=== PATIENT | female | born 1950 | race Caucasian/White ===

== ENCOUNTER 2017-10-24 15:36 | Inpatient (IN) | payer OTHER, MEDICARE ==
[~2017-10-24] VITALS: Ht 160 cm; Wt 60.3 kg
[2017-10-24 15:45] VITALS: BP 120/70
--- NOTE | 2017-10-24 15:50 | NUR ---
PT AMBULATED TO BED 7
--- NOTE | 2017-10-24 16:05 | NUR ---
PT COMES TO ED C/O RECTAL PAIN AND BRIOGHT RED BLOOD IN STOOL AND ON TISSUE WHEN WIPING. PT HAS GOOD SKIN COLOR, VSS, DENIES DIZZINESS N/V OR SOB. ABD SOFT AND NONTENDER. NAD NOTED/STATED OTHERWISE
[2017-10-24] MEDS ORDERED: fentaNYL 0.05 MG/ML VIAL IVP ONE (16:35)
[2017-10-24] MEDS ORDERED: NACL 0.9% 1,000 ML IV SCH ×2 (16:35→19:16)
[2017-10-24 17:36] LABS: BASOPHILS % (AUTO) 0.1 % (0.0-2.0); EOSINOPHILS # (AUTO) 0.1 K/uL (0-0.4); EOSINOPHILS % (AUTO) 0.9 % (0.0-4.0); LYMPHOCYTES # (AUTO) 1.3 K/uL (2.5-16.5); LYMPHOCYTES % (AUTO) 20.4 % (20.5-51.1); MEAN CORPUSCULAR HEMOGLOBIN 28 pg (27-31); MEAN CORPUSCULAR HGB CONC 32 g/dL (33-37); MEAN CORPUSCULAR VOLUME 87.4 fL (80-94); MONOCYTES # (AUTO) 0.4 K/uL (0.8-1.0); MONOCYTES % (AUTO) 5.5 % (1.7-9.3); NEUTROPHILS # (AUTO) 4.7 K/uL (1.8-7.7); NEUTROPHILS % (AUTO) 73.1 % (42.2-75.2); PLATELET COUNT (AUTO) 176 K/uL (140-450); RED BLOOD CELL COUNT(AUTO) 2.86 MIL/uL (4.20-5.40); RED CELL DISTRIBUTION WIDTH 16.1 % (11.6-13.7); WHITE BLOOD COUNT (AUTO) 6.5 K/uL (4.8-10.8)
[2017-10-24 17:51] LABS: ANION GAP 8.3 (8-16); CARBON DIOXIDE 31.2 mmol/L (21-32); CREATININE 0.6 mg/dL (0.6-1.3); POTASSIUM 3.5 mmol/L (3.5-5.1)
[2017-10-24 17:55] LABS: PROTHROMBIN TIME 11.7 secs (10.8-13.4)
[2017-10-24 17:57] LABS: ALBUMIN 2.7 g/dL (3.4-5.0); TOTAL BILIRUBIN 0.2 mg/dL (0.0-1.0)
--- NOTE | 2017-10-24 18:00 | NUR ---
Patient appears to be resting comfortably in bed, arousable to voice. pt states her pain is decreased to 2/10. Vital Signs within normal limits. Respirations even and unlabored.
--- NOTE | 2017-10-24 18:31 | NUR ---
Pt assisted to bedside commode with minimal assist for urine sample.
--- NOTE | 2017-10-24 18:45 | NUR ---
urine sample given to phlebotomy
[2017-10-24 19:06] LABS: BILIRUBIN,URINE NEGATIVE (NEGATIVE); BLOOD, URINE TRACE-I (NEGATIVE); COLOR,URINE YELLOW (YELLOW); LEUKOCYTE ESTERASE ,URINE TRACE (NEGATIVE); NITRITE, URINE NEGATIVE (NEGATIVE); PH,URINE 5.5 (5.0-9.0); UGLUCOSE NEGATIVE (NEGATIVE)
[2017-10-24 19:18] LABS: APPEARANCE,URINE HAZY (CLEAR)
[2017-10-24] MEDS ORDERED: ONDANSETRON 4 MG/2 ML VIAL IM/IVP PRN (19:20)
[2017-10-24] MEDS ORDERED: ACETAMINOPHEN 325 MG TAB PO PRN (19:20)
[2017-10-24] MEDS ORDERED: HYDROcodone/APAP 7.5/325 MG 1 TAB PO PRN (19:20)
[2017-10-24] MEDS ORDERED: DOCUSATE SODIUM 100 MG GELCAP PO PRN (19:20)
[2017-10-24 19:22] LABS: RBC,URINE 0-5 (RARE) /HPF (0-5); WBC,URINE 0-5 (RARE) /HPF (0-5)
--- NOTE | 2017-10-24 19:27 | NUR ---
pmd at bedside
--- NOTE | 2017-10-24 19:35 | NUR ---
DR ARORA AT BEDSIDE TO AARONAL
[2017-10-24 19:48] LABS: CHOL/HDL RATIO 4.7 (1-4.5); FREE T4 (FREE THYROXINE) 0.82 ng/dL (0.76-1.46); MAGNESIUM 1.6 mg/dL (1.8-2.4); THYROID STIMULATING HORMONE 5.64 uIU/mL (0.34-3.74)
--- NOTE | 2017-10-24 20:00 | NUR ---
PT ARRIVED FROM ED, AMBULATED TO BED, TOLERATED WELL, REPORT RECEIVED FROM MINDY RN, PT STABLE, NO DISTRESS NOTED, IV TO L FA 22G SL, PATENT INTACT, PT ON ROOM AIR NO SOB, ORIENT PT TO ROOM, BED, CALL LIGHT AND PHONE, MRSA SWAB TAKEN, INITIAL ASSESSMENT DONE, ALL SAFETY PRECAUTION MET, WILL CONTINUE TO MONITOR.
--- NOTE | 2017-10-24 20:00 | NUR ---
Pt transferred to Tele via .
--- NOTE | 2017-10-24 20:06 | NUR ---
Note eleazar in EDM - 10/24/17 at 2007 by TRISTAN Patient will be admitted to care of DR FRANCISCO. Admited to TELE. Will go to room 111A. Belongings list completed. Report to MARCO MIX.
--- NOTE | 2017-10-24 20:07 | NUR ---
Patient will be admitted to care of DR FRANCISCO. Admited to TELE. Will go to room 111A. Belongings list completed. Report to MARCO SHARP.
[2017-10-24] MEDS ORDERED: PRED5TAB7 PO (20:22)
[2017-10-24] MEDS ORDERED: SPIMDI INH (20:25)
[2017-10-24] MEDS ORDERED: DICL1GEL19 TP (20:25)
[2017-10-24] MEDS ORDERED: AMLO10TA PO (20:25)
[2017-10-24] MEDS ORDERED: CARV6.25 PO (20:25)
[2017-10-24] MEDS ORDERED: RIVA15TA1 PO (20:27)
[2017-10-24 20:30] VITALS: BP 145/74
[2017-10-24] MEDS ORDERED: IPRATROPIUM 0.02% 0.5 MG/2.5 ML NEBU INH PRN (20:30)
--- NOTE | 2017-10-24 20:31 | NUR ---
DR. ARORA AT BEDSIDE TALKING TO PT, DR STATED TO HOLD IVF FOR NOW, HE WANTS TO SEE PT CBC FIRST BEFORE RUNNING ANY FLUIDS ON HER.
[2017-10-24] MEDS ORDERED: SODIUM CHLORIDE FLUSH 10 ML SYR IVF SCH (21:00)
[2017-10-24] MEDS: CARVEDILOL 6.25 MG TAB PO SCH (21:10)
[2017-10-24] MEDS ORDERED: ZOLPIDEM 5 MG TAB PO SCH (21:45)
[2017-10-24] MEDS ORDERED: MAGNESIUM OXIDE 400 MG TAB PO SCH (22:00)
--- NOTE | 2017-10-24 22:53 | NUR ---
PT STATED UNABLE TO SLEEP, NOTIFIED DR. ARORA REGARDING PT CONCERNS, STATED UNDERSTANDING AND ORDERED AMBIEN, ADMINISTERED AMBIEN AND DUE MEDICATION, PT TOLERATED WELL, NO DISTRESS NOTED, CALL LIGHT WITHIN REACH, WILL CONTINUE TO MONITOR.
[2017-10-24 23:08] LABS: BASOPHILS % (AUTO) 0.2 % (0.0-2.0); EOSINOPHILS # (AUTO) 0.1 K/uL (0-0.4); HEMATOCRIT 23.3 % (36-48); HEMOGLOBIN 7.7 g/dL (12.0-16.0); LYMPHOCYTES # (AUTO) 1.2 K/uL (2.5-16.5); LYMPHOCYTES % (AUTO) 22.9 % (20.5-51.1); MEAN CORPUSCULAR HEMOGLOBIN 29 pg (27-31); MEAN CORPUSCULAR HGB CONC 33 g/dL (33-37); MEAN CORPUSCULAR VOLUME 86.7 fL (80-94); MONOCYTES # (AUTO) 0.3 K/uL (0.8-1.0); NEUTROPHILS # (AUTO) 3.7 K/uL (1.8-7.7); NEUTROPHILS % (AUTO) 69.9 % (42.2-75.2); PLATELET COUNT (AUTO) 140 K/uL (140-450); RED BLOOD CELL COUNT(AUTO) 2.69 MIL/uL (4.20-5.40); RED CELL DISTRIBUTION WIDTH 15.8 % (11.6-13.7); WHITE BLOOD COUNT (AUTO) 5.3 K/uL (4.8-10.8)
[2017-10-25] VITALS: BP 107/54
--- NOTE | 2017-10-25 00:01 | NUR ---
CHECKED ON PT, PT RESTING ON BED, NO DISTRESS NOTED, CALL LIGHT WITHIN REACH.
[2017-10-25] MEDS: NACL 0.9% 1,000 ML IV SCH ×2 (02:00→21:35)
--- NOTE | 2017-10-25 02:30 | NUR ---
PT SLEEPING, NO DISTRESS NOTED, CALL LIGHT WITHIN REACH, WILL CONTINUE TO MONITOR.
[2017-10-25 04:00] VITALS: BP 136/72
--- NOTE | 2017-10-25 04:22 | NUR ---
CHECKED ON PT, PT SLEEPING, NO DISTRESS NOTED, CALL LIGHT WITHIN REACH, WILL CONTINUE TO MONITOR.
--- NOTE | 2017-10-25 06:25 | NUR ---
MOVED PT TO ROOM 124 B, PT TOLERATED WELL, NO DISTRESS NOTED, CALL LIGHT WITHIN REACH, WILL CONTINUE TO MONITOR
[2017-10-25 06:49] LABS: BASOPHILS % (AUTO) 0.4 % (0.0-2.0); EOSINOPHILS # (AUTO) 0.1 K/uL (0-0.4); EOSINOPHILS % (AUTO) 1.7 % (0.0-4.0); HEMATOCRIT 25.1 % (36-48); HEMOGLOBIN 8.1 g/dL (12.0-16.0); LYMPHOCYTES % (AUTO) 26.7 % (20.5-51.1); MEAN CORPUSCULAR HEMOGLOBIN 28 pg (27-31); MEAN CORPUSCULAR HGB CONC 32 g/dL (33-37); MEAN CORPUSCULAR VOLUME 86.9 fL (80-94); MONOCYTES # (AUTO) 0.3 K/uL (0.8-1.0); MONOCYTES % (AUTO) 7.5 % (1.7-9.3); NEUTROPHILS # (AUTO) 2.4 K/uL (1.8-7.7); NEUTROPHILS % (AUTO) 63.7 % (42.2-75.2); PLATELET COUNT (AUTO) 138 K/uL (140-450); RED BLOOD CELL COUNT(AUTO) 2.89 MIL/uL (4.20-5.40); RED CELL DISTRIBUTION WIDTH 16.2 % (11.6-13.7); WHITE BLOOD COUNT (AUTO) 3.7 K/uL (4.8-10.8)
[2017-10-25] MEDS: MORPHINE SULFATE 4 MG/ML SYR IVP PRN ×3 (07:09→23:03)
[2017-10-25 07:12] LABS: ANION GAP 9.6 (8-16); CARBON DIOXIDE 29.2 mmol/L (21-32); CREATININE 0.5 mg/dL (0.6-1.3); POTASSIUM 3.8 mmol/L (3.5-5.1)
--- NOTE | 2017-10-25 07:21 | NUR ---
ENDORSED PLAN OF CARE TO DAY SHIFT NURSE WILL RN FOR CONTINUOUS OF CARE. CALL LIGHT WITHIN REACH.
--- NOTE | 2017-10-25 07:22 | NUR ---
RECEIVED BEDSIDE REPORT FROM HEAT TREATER HEAD NURSE. PATIENT IS AWAKE, ALERT AND ORIENTEDX4. NO COMPLAINTS AT THIS TIME. NO SIGNS OF DISTRESS ON ROOM AIR. IV ON L WRIST 22G INFUSING NS AT 50ML/HR. IV IS CLEAN, DRY AND INTACT. SKIN IS INTACT. TELE MONITOR IN PLACE. WILL CONTINUE TO MONITOR THE PATIENT
[2017-10-25 08:00] VITALS: BP 134/74
[2017-10-25] MEDS ORDERED: DICLOFENAC SODIUM 100 GM TP SCH (09:00)
[2017-10-25 09:03] LABS: T4 (THYROXINE) 5.9 ug/dL (4.5-12.0)
--- NOTE | 2017-10-25 09:04 | NUR ---
PATIENT HAS BEEN SCREENED AND CATEGORIZED MODERATE NUTRITION RISK. PATIENT WILL BE SEEN WITHIN 3-5 DAYS OF ADMISSION. 10/27/17 10/29/[address]
[2017-10-25] MEDS: CARVEDILOL 6.25 MG TAB PO SCH ×2 (09:36→21:11)
[2017-10-25] MEDS: predniSONE 5 MG TAB PO SCH (09:36)
[2017-10-25] MEDS: amLODIPine 5 MG TAB PO SCH (09:37)
--- NOTE | 2017-10-25 09:38 | NUR ---
ADMINISTERED MEDS. PATIENT TOLERATED WELL. NO COMPLAINTS AT THIS TIME. WILL CONTINUE TO MONITOR THE PATIENT.
--- NOTE | 2017-10-25 10:25 | NUR ---
ADMINISTERED PRN PAIN MED. PATIENT TOLERATING WELL. IV IS CLEAN, DRY AND INTACT. PLACED A WARM BLANKET ON L LEG AND ON BACK TO HELP W PAIN. WILL CONTINUE TO MONITOR THE PATIENT.
[2017-10-25 12:00] VITALS: BP 137/76
--- NOTE | 2017-10-25 12:00 | NUR ---
FAMILY AT BEDSIDE. PATIENT IS AWAKE, ALERT AND ORIENTEDX4. NO SIGNS OF RESP DISTRESS ON ROOM AIR. NO COMPLAINTS WILL CONTINUE TO MONITOR THE PATIENT.
[2017-10-25 13:57] LABS: BASOPHILS % (AUTO) 0.2 % (0.0-2.0); EOSINOPHILS # (AUTO) 0.1 K/uL (0-0.4); HEMATOCRIT 23.3 % (36-48); HEMOGLOBIN 7.6 g/dL (12.0-16.0); LYMPHOCYTES # (AUTO) 0.8 K/uL (2.5-16.5); LYMPHOCYTES % (AUTO) 14.8 % (20.5-51.1); MEAN CORPUSCULAR HEMOGLOBIN 28 pg (27-31); MEAN CORPUSCULAR HGB CONC 33 g/dL (33-37); MEAN CORPUSCULAR VOLUME 86.5 fL (80-94); MONOCYTES # (AUTO) 0.3 K/uL (0.8-1.0); MONOCYTES % (AUTO) 5.6 % (1.7-9.3); NEUTROPHILS # (AUTO) 4.2 K/uL (1.8-7.7); NEUTROPHILS % (AUTO) 78.4 % (42.2-75.2); PLATELET COUNT (AUTO) 137 K/uL (140-450); RED BLOOD CELL COUNT(AUTO) 2.69 MIL/uL (4.20-5.40); WHITE BLOOD COUNT (AUTO) 5.3 K/uL (4.8-10.8)
--- NOTE | 2017-10-25 14:45 | NUR ---
ASSESSED ORTHOSTATIC HYPOTENSION WITH THE DOCTOR. LAYING IS 143/66, SITTING 114/65 AND STANDING IS 101/62. EXPLAINED TO THE PATIENT TO LET US KNOW WHEN SHE WILL HAVE A BOWEL MOVEMENT SO WE CAN CHECK IF THERE IS BLOOD PRESENT. PATIENT VERBALIZED UNDERSTANDING. WILL CONTINUE TO MONITOR THE PATIENT.
--- NOTE | 2017-10-25 15:32 | NUR ---
PATIENT IS EATING REGULAR DIET. PATIENT TOLERATING WELL. NO OTHER COMPLAINTS AT THIS TIME. WILL CONTINUE TO MONITOR THE PATIENT.
[2017-10-25 16:00] VITALS: BP 137/70
--- NOTE | 2017-10-25 17:03 | NUR ---
SCDS PLACED, ULTRASOUND SAYS IT IS NEGATIVE FOR DVT. PATIENT IS TOLERATING IT WELL. SHE IS ENJOYING THE "MASSAGE" FROM THE MACHINE. WILL CONTINUE TO MONITOR THE PATIENT.
--- NOTE | 2017-10-25 17:28 | NUR ---
FAMILY AT BEDSIDE. PATIENT ASKING IF 8YR OLD GRANDDAUGHTER CAN VISIT. PER CHARGE NURSE DENIED BECAUSE SHE IS TOO YOUNG. PATIENT UNDERSTANDS. WILL CONTINUE TO MONITOR THE PATIENT. NO OTHER COMPLAINTS AT THIS TIME.
--- NOTE | 2017-10-25 19:25 | NUR ---
GAVE REPORT TO ORDER BUILDER NURSE. PATIENT IS ENDORSED IN STABLE CONDITION.
--- NOTE | 2017-10-25 19:30 | NUR ---
RECEIVED REPORT AT BEDSIDE FROM [facility] NURSE WILL FOR CONTINUITY OF CARE. PT IS AAOX4. NO SOB. NO S/S OF DISTRESS ON RA. IV NOTED L WRIST 22G NS 50ML/HR. WAITING FOR STOOL TO EVALUATE AND CURRENT CBC. PT HAS ORTHOSTATIC HYPOTENSION SO PT IS TO CALL US WHEN SHE WANTS TO GET UP. US KIDNEY ORDERED WILL CALL LATER TO SEE THEIR TIME. BED LOWERED CALL LIGHT WITHIN REACH. PT HAS PAIN L LEG AND FINGER PT HAS OWN MEDICATION TOPICAL AT BEDSIDE. WILL CONTINUE TO MONITOR.
[2017-10-25 20:21] VITALS: BP 134/65
--- NOTE | 2017-10-25 20:30 | NUR ---
PT HAD A BOWEL MOVEMENT ON DIAPER. I ASSESSED IT AND NO BLOOD. JUST LITTLE DIARRHEA. WILL CONTINUE TO MONITOR AND WILL ENDORSE IT TO MORNING NURSE.
--- NOTE | 2017-10-25 21:00 | NUR ---
PT REQUESTED TO GET CHOLESTYRAMINE FOR DIARRHEA. TOLD HER WE WILL WAIT FOR HER GI DR TO COME IN AND LET HIM KNOW. WILL CONTINUE TO MONITOR.
[2017-10-25] MEDS: ZOLPIDEM 5 MG TAB PO SCH (21:11)
[2017-10-26] VITALS: BP 134/65
--- NOTE | 2017-10-26 01:33 | NUR ---
PT IS SLEEPING. NO SOB. NO S/S OF DISTRESS WILL CONTINUE TO MONITOR.
[2017-10-26 03:46] VITALS: BP 127/65
--- NOTE | 2017-10-26 06:03 | NUR ---
PT SLEEPING. NO S/S OF DISTRESS. ON RA. WILL CONTINUE TO MONITOR.
[2017-10-26 06:44] LABS: BASOPHILS % (AUTO) 0.4 % (0.0-2.0); EOSINOPHILS # (AUTO) 0.1 K/uL (0-0.4); EOSINOPHILS % (AUTO) 1.4 % (0.0-4.0); HEMOGLOBIN 7.6 g/dL (12.0-16.0); LYMPHOCYTES # (AUTO) 0.8 K/uL (2.5-16.5); LYMPHOCYTES % (AUTO) 19.8 % (20.5-51.1); MEAN CORPUSCULAR HEMOGLOBIN 29 pg (27-31); MEAN CORPUSCULAR HGB CONC 33 g/dL (33-37); MEAN CORPUSCULAR VOLUME 86.5 fL (80-94); MONOCYTES # (AUTO) 0.2 K/uL (0.8-1.0); MONOCYTES % (AUTO) 5.6 % (1.7-9.3); NEUTROPHILS # (AUTO) 2.9 K/uL (1.8-7.7); NEUTROPHILS % (AUTO) 72.8 % (42.2-75.2); PLATELET COUNT (AUTO) 140 K/uL (140-450); RED BLOOD CELL COUNT(AUTO) 2.66 MIL/uL (4.20-5.40); RED CELL DISTRIBUTION WIDTH 15.6 % (11.6-13.7); WHITE BLOOD COUNT (AUTO) 3.9 K/uL (4.8-10.8)
--- NOTE | 2017-10-26 07:25 | NUR ---
GAVE REPORT TO DAYSHIFT NURSE AT BEDSIDE FOR CONTINUITY OF CARE.
--- NOTE | 2017-10-26 07:26 | NUR ---
RECEIVED REPORT FROM WARDROBE TECHNICIAN NURSE. PATIENT IS BRUSHING TEETH OVER THE SINK. ABLE TO AMBULATE WITH STEADY GAIT TO BATHROOM AND BACK TO BED, AND REPORT FEELING STRONGER TODAY. DENIES ANY PAIN AT THIS TIME. RESPIRATIONS EVEN, UNLABORED, ON ROOM AIR. AAOX4, CALM, COOPERATIVE, SKIN COLOR APPROPRIATE TO ETHNICITY, WARM TO TOUCH. IV SITE INTACT, PATENT, AND INFUSING IVF PER ORDERS. LUNGS CTA ON ALL LOBES. ABDOMEN SOFT, NON-DISTENDED. REVIEWED PLAN OF CARE WITH PATIENT. PATIENT VERBALIZED UNDERSTANDING. SAFETY MEASURES IN PLACE, CALL LIGHT WITHIN REACH. WILL CONTINUE TO MONITOR.
[2017-10-26 07:40] LABS: ANION GAP 10.9 (8-16); CARBON DIOXIDE 28.6 mmol/L (21-32); CREATININE 0.5 mg/dL (0.6-1.3); POTASSIUM 3.5 mmol/L (3.5-5.1)
[2017-10-26 07:44] LABS: MAGNESIUM 1.9 mg/dL (1.8-2.4)
[2017-10-26 08:00] VITALS: BP 138/70
[2017-10-26] MEDS: CARVEDILOL 6.25 MG TAB PO SCH ×2 (08:26→21:20)
[2017-10-26] MEDS: predniSONE 5 MG TAB PO SCH (08:26)
[2017-10-26] MEDS: amLODIPine 5 MG TAB PO SCH (08:27)
[2017-10-26] MEDS: MORPHINE SULFATE 4 MG/ML SYR IVP PRN (08:27)
--- NOTE | 2017-10-26 08:37 | NUR ---
PATIENT LYING IN BED WITH COMPLAINTS OF 8/10 PAIN, WILL MEDICATE WITH MORPHINE. OTHER SCHEDULED MEDICATIONS DUE GIVEN. SAFETY MEASURES IN PLACE, CALL LIGHT WITHIN REACH. WILL CONTINUE TO MONITOR.
[2017-10-26] MEDS ORDERED: FERR325E14 PO ×2 (10:20→10:22)
[2017-10-26] MEDS ORDERED: DOCU-299 PO (10:21)
--- NOTE | 2017-10-26 11:00 | NUR ---
ASKED PATIENT IF SHE WAS ABLE TO AMBULATE AROUND [facility] WITH NURSE ASSISTANCE AT THIS TIME. REPORTS FEELING VERY WEAK AND DIZZY AT THIS TIME AND WANTS TO REST. TOLD PATIENT THAT MD APPROVED OF HER GOING HOME TODAY IF SHE IS ABLE TO WALK 2 LAPS AROUND [facility] WITHOUT DIZZINESS. PATIENT VERBALIZED UNDERSTANDING AND WILL TRY TO AMBULATE WITH NURSE LATER AFTER SHE GETS SOME REST. WILL CONTINUE TO MONITOR.
[2017-10-26 12:00] VITALS: BP 131/67
--- NOTE | 2017-10-26 12:30 | NUR ---
AMBULATED WITH PATIENT 2 LAPS AROUND [facility], PATIENT ABLE TO AMBULATE WITH 1 PERSON ASSISTANCE, UNSTEADY GAIT. REPORTS FEELING VERY WEAK. NOTIFIED MD OF FINDINGS AND MD WILL TALK TO PATIENT AT BEDSIDE REGARDING PLAN OF CARE. WILL CONTINUE TO MONITOR.
--- NOTE | 2017-10-26 14:00 | NUR ---
DR. FRANKS AT BEDSIDE REVIEWING PLAN OF CARE WITH PATIENT. PATIENT HAS NEW PT EVAL ORDERS AND GI CONSULT WITH DR. CONTEH. PATIENT MAY BE STAYING OVER TONIGHT. PATIENT IS ALRIGHT WITH PLAN OF CARE. CHANGED PATIENT ROOMS PER PATIENT REQUEST DUE TO BEING TOO COLD IN PREVIOUS ROOM DUE TO NON-WORKING HEATER. ABLE TO AMBULATE WITH ASSISTANCE FROM PREVIOUS ROOM TO THE OTHER. SAFETY MEASURES IN PLACE, CALL LIGHT WITHIN REACH. WILL CONTINUE TO MONITOR.
[2017-10-26 15:13] LABS: FOLIC ACID 17.3 ng/mL (>3.0)
[2017-10-26 16:00] VITALS: BP 149/75
--- NOTE | 2017-10-26 16:45 | NUR ---
ASSISTED PATIENT TO BEDSIDE COMMODE AND BACK TO BED. PATIENT ABLE TO AMBULATE WITH ASSISTANCE DUE TO WEAKNESS. CONDITION UNCHANGED. SAFETY MEASURES IN PLACE, CALL LIGHT WITHIN REACH. WILL CONTINUE TO MONITOR.
[2017-10-26] MEDS ORDERED: FERROUS SULFATE 325 MG TABEC PO SCH (17:00)
[2017-10-26] MEDS ORDERED: ASCORBIC ACID 500 MG TAB PO SCH (17:00)
--- NOTE | 2017-10-26 17:10 | NUR ---
PATIENT SITTING IN BED COMFORTABLY. NO DISTRESS NOTED. DENIES ANY PAIN. SCHEDULED MEDICATIONS DUE GIVEN. SAFETY MEASURES IN PLACE, CALL LIGHT WITHIN REACH. WILL CONTINUE TO MONITOR.
--- NOTE | 2017-10-26 17:18 | NUR ---
PHYSICAL THERAPIST AT BEDSIDE FOR EVALUATION. WILL CONTINUE TO MONITOR.
--- NOTE | 2017-10-26 17:30 | NUR ---
PHYSICAL THERAPIST COMPLETED ASSESSMENT. PER PHYSICAL THERAPIST OWEN, PATIENT ALRIGHT TO GO HOME. PATIENT ALREADY HAS A WALKER, WHEELCHAIR, AND ASSISTANCE AT HOME. PHYSICAL THERAPIST BELIEVES WEAKNESS AND DIZZINESS IS DUE TO ANEMIA. SAFETY MEASURES IN PLACE, CALL LIGHT WITHIN REACH. WILL CONTINUE TO MONITOR.
[2017-10-26] MEDS: NACL 0.9% 1,000 ML IV SCH (17:34)
--- NOTE | 2017-10-26 18:47 | NUR ---
PATIENT LYING DOWN IN BED SLEEPING, AROUSABLE BY VOICE. LEFT WRIST IV SITE IS LEAKING, REMOVED WITH MINIMAL BLOOD AND LUMEN COMPLETELY INTACT. INSERTED NEW IV LINE ON RIGHT FOREARM #22G ON FIRST ATTEMPT. PATIENT TOLERATED PROCEDURE WELL. SAFETY MEASURES IN PLACE, CALL LIGHT WITHIN REACH. WILL CONTINUE TO MONITOR.
--- NOTE | 2017-10-26 19:20 | NUR ---
GAVE REPORT TO PROBATION AGENT NURSE FOR CONTINUITY OF CARE. PATIENT IN STABLE CONDITION.
[2017-10-26 19:55] VITALS: BP 114/59
--- NOTE | 2017-10-26 20:59 | NUR ---
DR. SANTANA CALLED AND ASKED ABOUT PT CONDITION AND GAVE SOME ORDERS. WILL HAVE RESIDENT ON DUTY TO TALK TO DR. SANTANA TO CLARIFY THE ORDERS HIMSELF.
[2017-10-26] MEDS: ZOLPIDEM 5 MG TAB PO SCH ×2 (21:00→21:20)
[2017-10-26] MEDS ORDERED: SODIUM PHOSPHATE 118 ML ENEM RC ONE (21:40)
[2017-10-26] MEDS ORDERED: SODIUM FERRIC GLUCONATE 125 MG in NACL 0.9% 100 ML IV SCH (21:40)
--- NOTE | 2017-10-26 21:47 | NUR ---
FLEETS ENEMA X2 GIVEN PER RECTUM PER ORDERED.WILL WAIT FOR RESULT .
[2017-10-27 00:30] VITALS: BP 111/72
--- NOTE | 2017-10-27 00:30 | NUR ---
PT HAD X2 BOWEL MOVEMENT AFTER THE FIRST FLEETS ENEMA X2 . OUTPUT IS CLEAR WATERY WITH SMALL GREENISH SOFT STOOL.
[2017-10-27] MEDS: ZOLPIDEM 5 MG TAB PO SCH (01:15)
--- NOTE | 2017-10-27 01:15 | NUR ---
PT REFUSED THE AMBIEN AT 2100 . BUT THIS TIME PT REQUESTED IT . GIVEN WITH LITTLE SIPS OF WATER.
[2017-10-27] MEDS: NACL 0.9% 1,000 ML IV SCH (01:20)
--- NOTE | 2017-10-27 03:15 | NUR ---
PT SLEEPING WELL AT THIS TIME. NO S/S OF ANY DISCOMFORT NOR PAIN NOTED.
[2017-10-27 04:40] VITALS: BP 120/64
[2017-10-27] MEDS ORDERED: SODIUM FERRIC GLUCONATE 125 MG in NACL 0.9% 100 ML IV ONE (06:00)
--- NOTE | 2017-10-27 06:23 | NUR ---
2ND DOSE OF FLEETS ENEMA WAS GIVEN. PT HAD A MODERATE LIQUID BM,CLEAR WATER WITH SMALL AMOUNT OF GREENISH STOOL.
--- NOTE | 2017-10-27 07:15 | NUR ---
ENDORSED PT IN STABLE CONDITION TO AM NURSE.
--- NOTE | 2017-10-27 07:16 | NUR ---
RECEIVED REPORT FROM REACTOR FUELING SUPERVISOR NURSE. PATIENT LYING DOWN IN BED SLEEPING, AROUSABLE BY VOICE. NO DISTRESS NOTED. ABLE TO AMBULATE WITH ASSISTANCE, BEDSIDE COMMODE AT BEDSIDE.. DENIES ANY PAIN AT THIS TIME. RESPIRATIONS EVEN, UNLABORED, ON ROOM AIR. AAOX4, CALM, COOPERATIVE, SKIN COLOR APPROPRIATE TO ETHNICITY, WARM TO TOUCH. IV SITE INTACT, PATENT, AND INFUSING IVF PER ORDERS. LUNGS CTA ON ALL LOBES. ABDOMEN SOFT, NON-DISTENDED. REVIEWED PLAN OF CARE WITH PATIENT. PATIENT VERBALIZED UNDERSTANDING. SAFETY MEASURES IN PLACE, CALL LIGHT WITHIN REACH. WILL CONTINUE TO MONITOR.
[2017-10-27 07:36] LABS: ANION GAP 10.5 (8-16); CARBON DIOXIDE 28.9 mmol/L (21-32); CREATININE 0.5 mg/dL (0.6-1.3); POTASSIUM 3.4 mmol/L (3.5-5.1)
[2017-10-27 07:51] LABS: BASOPHILS % (AUTO) 0.3 % (0.0-2.0); EOSINOPHILS % (AUTO) 1.2 % (0.0-4.0); HEMATOCRIT 22.1 % (36-48); HEMOGLOBIN 7.2 g/dL (12.0-16.0); LYMPHOCYTES # (AUTO) 0.9 K/uL (2.5-16.5); LYMPHOCYTES % (AUTO) 22.9 % (20.5-51.1); MEAN CORPUSCULAR HEMOGLOBIN 28 pg (27-31); MEAN CORPUSCULAR HGB CONC 33 g/dL (33-37); MEAN CORPUSCULAR VOLUME 87.4 fL (80-94); MONOCYTES # (AUTO) 0.3 K/uL (0.8-1.0); MONOCYTES % (AUTO) 7.2 % (1.7-9.3); NEUTROPHILS # (AUTO) 2.7 K/uL (1.8-7.7); NEUTROPHILS % (AUTO) 68.4 % (42.2-75.2); PLATELET COUNT (AUTO) 134 K/uL (140-450); RED BLOOD CELL COUNT(AUTO) 2.53 MIL/uL (4.20-5.40); RED CELL DISTRIBUTION WIDTH 15.9 % (11.6-13.7); WHITE BLOOD COUNT (AUTO) 3.9 K/uL (4.8-10.8)
[2017-10-27 08:00] VITALS: BP 131/57
[2017-10-27 08:05] LABS: PHOSPHORUS 4.4 mg/dL (2.5-4.9)
[2017-10-27] MEDS ORDERED: ASCORBIC ACID 500 MG TAB PO SCH (09:00)
[2017-10-27] MEDS: amLODIPine 5 MG TAB PO SCH (09:00)
[2017-10-27] MEDS: CARVEDILOL 6.25 MG TAB PO SCH (09:00)
[2017-10-27] MEDS: predniSONE 5 MG TAB PO SCH (09:25)
--- NOTE | 2017-10-27 09:30 | NUR ---
PATIENT LYING IN BED SLEEPING, AROUSABLE BY VOICE. NO DISTRESS NOTED. DENIES ANY PAIN AT THIS TIME. SCHEDULED MEDICATIONS DUE GIVEN. AWAITING FOR OR NURSES TO TAKE PATIENT FOR SIGMOIDNOSCOPY. CONDITION UNCHANGED. WILL CONTINUE TO MONITOR.
--- NOTE | 2017-10-27 09:31 | NUR ---
BLOOD PRESSURE MEDICATIONS NOT GIVEN DUE TO SIGMOIDNOSCOPY SCHEDULED AT 1000 AM TODAY. PATIENT'S CURRENT BP IS WITHIN NORMAL LIMITS. WILL CONTINUE TO MONITOR.
[2017-10-27] MEDS ORDERED: fentaNYL 0.05 MG/ML VIAL ONE (09:38)
[2017-10-27] MEDS ORDERED: MIDAZOLAM 2 MG/2 ML VIAL ONE (09:39)
[2017-10-27] MEDS: LIDOCAINE 2% 100 MG/5 ML UJET TP ONE ×2 (09:39→10:20)
--- NOTE | 2017-10-27 09:50 | NUR ---
OR NURSES AT BEDSIDE READY TO TAKE PATIENT TO OR FOR SIGMOIDNOSCOPY. WILL CONTINUE TO MONITOR WHEN PATIENT RETURNS ON UNIT.
[2017-10-27 10:33] VITALS: BP 127/64
--- NOTE | 2017-10-27 10:33 | NUR ---
PATIENT BACK ON UNIT FROM OR. DR. SANTANA AT BEDSIDE EXPLAINING RESULTS TO PATIENT. NO BLEEDING PER DR. SANTANA AND PATIENT IS OK TO GO BACK TO REGULAR DIET AND GO HOME LATER TODAY WITH FOLLOW-UP WITH DR. SANTANA IN 6 WEEKS. SAFETY MEASURES IN PLACE, V/S STABLE, WILL CONTINUE TO MONITOR.
[2017-10-27] MEDS ORDERED: SODIUM FERRIC GLUCONATE 125 MG in NACL 0.9% 100 ML IV SCH (12:00)
--- NOTE | 2017-10-27 12:00 | NUR ---
PATIENT SITTING IN BED WITH LUNCH TRAY IN FRONT. NO DISTRESS NOTED. CONDITION UNCHANGED. WILL CONTINUE TO MONITOR.
[2017-10-27] MEDS ORDERED: POTASSIUM CHLORIDE 10 MEQ TABER PO SCH (14:30)
--- NOTE | 2017-10-27 14:30 | NUR ---
PATIENT SITTING IN BED COMFORTABLY. NO DISTRESS NOTED. DENIES ANY PAIN. DISCHARGE INSTRUCTIONS PROVIDED TO PATIENT IN PREFERRED LANGUAGE OF SAMMARINESE, FOLLOW-UP VISITS WITH PCP, AND GI MD, DIET REGIMEN, NEW/CHANGED MEDICATIONS, AND DISEASE PROCESS OF ANEMIA. ANSWERED ALL OF PATIENT'S QUESTIONS REGARDING DISCHARGE. PATIENT VERBALIZED COMPLETE UNDERSTANDING. IV SITE REMOVED WITH MINIMAL BLOOD AND LUMEN COMPLETELY INTACT. ALL BELONGINGS WITH PATIENT. PATIENT ALREADY DRESSED AND READY TO GO. AWAITING FOR TO ARRIVE TO TAKE PATIENT HOME. POTASSIUM CHOLORIDE GIVEN PO PER ORDERS BEFORE DISCHARGE.
--- NOTE | 2017-10-27 14:44 | NUR ---
PATIENT'S AT [facility] READY TO TAKE PATIENT HOME. ESCORTED PATIENT DOWN TO [facility] VIA WHEELCHAIR. ASSISTED PATIENT FROM WHEELCHAIR TO PRIVATE VEHICLE. PATIENT DISCHARGED TO HOME IN A PRIVATE VEHICLE AT THIS TIME IN STABLE CONDITION.
[2017-10-27] MEDS ORDERED: SODIUM PHOSPHATE 118 ML ENEM RC ONE (21:40)
== END 2017-10-27 14:45 | disposition home or self-care (01) | DRG 377 ==
LOC: MED 15:36 → MTU 19:16
PROVIDERS: ADMIT Family Medicine Sports Medicine; ATTEND Family Medicine Sports Medicine
PROC: 0DJD8ZZ Inspection of Lower Intestinal Tract, Via Natural or Artificial Opening Endoscopic (ICD-10-PCS; principal; 2017-10-27 10:00)
DX: K57.31 Diverticulosis of large intestine without perforation or abscess with bleeding (principal); N17.0 Acute kidney failure with tubular necrosis; E43 Unspecified severe protein-calorie malnutrition; M34.1 CR(E)ST syndrome; E11.22 Type 2 diabetes mellitus with diabetic chronic kidney disease; E87.8 Other disorders of electrolyte and fluid balance, not elsewhere classified; E83.42 Hypomagnesemia; N28.1 Cyst of kidney, acquired; D50.0 Iron deficiency anemia secondary to blood loss (chronic); I95.1 Orthostatic hypotension; E02 Subclinical iodine-deficiency hypothyroidism; M06.9 Rheumatoid arthritis, unspecified; I12.9 Hypertensive chronic kidney disease with stage 1 through stage 4 chronic kidney disease, or unspecified chronic kidney disease; N18.9 Chronic kidney disease, unspecified; R19.5 Other fecal abnormalities; E78.5 Hyperlipidemia, unspecified; Z86.718 Personal history of other venous thrombosis and embolism; Z88.6 Allergy status to analgesic agent; Z88.1 Allergy status to other antibiotic agents; Z90.49 Acquired absence of other specified parts of digestive tract; Z79.899 Other long term (current) drug therapy; Z68.23 Body mass index [BMI] 23.0-23.9, adult
CPT/HCPCS: 36415; 45330; 71045; 76770; 80048; 80053; 81001; 82150; 82607; 82728; 82746; 83036; 83540; 83605; 83690; 83735; 83880; 84100; 84436; 84439; 84443; 84479; 85025; 85045; 85610; 85730; 87040; 87081; 87086; 93005; 93970; 96361; 96374; 99285; J2250; J2270; J2916; J3010; J7030; J7512; Q0092